=== PATIENT | female | born 1985 | race Caucasian/White ===

== ENCOUNTER → 2016-10-20 | Outpatient (CLI) | payer BC ==
[~2016-10-20] MED LIST: ALPR-411 PO; ASCO10003 PO; CALCTAB7 PO; CHOL1000 PO; COEN150C4 PO; CYCL10TA6 PO; DICL1GEL12 TOP; GABA1CAP4 PO; GLC/500 PO; GLUC10007 PO; HYOS1TAB PO; LACT1CAP6 PO; MELO7.5T5 PO; MENA1CAP PO; METH500C8 PO; MODA1TAB PO; MULT-506 PO; NF656 TD; OMEG10007 PO; OXYC1TAB3 PO; PRAZ1CAP10 PO; PROM25TA9 PO; PROP1TAB PO; PYRI50TA77 PO; VALA500T60 PO
[2016-10-20 16:10] LABS: HEMATOCRIT 38.9 % (37-47)
== END | disposition home or self-care (01) ==
LOC: C.LAB 15:05
PROVIDERS: ATTEND Obstetrics & Gynecology
DX: N92.5 Other specified irregular menstruation (principal)

== ENCOUNTER → 2017-08-19 | Outpatient (CLI) | payer BC ==
[~2017-08-19] MED LIST changes: +SINCALIDE INJ 2 MCG in SODIUM CHLORIDE 0.9% 100ML 100 ML IV SCH
--- NOTE | 2017-08-19 07:39 | DIAGNOSTIC IMAGING REPORT ---
ULTRASOUND RIGHT UPPER QUADRANT ABDOMEN CLINICAL HISTORY: Nausea. COMPARISON STUDY: No priors. TECHNIQUE: Real-time, grayscale, and color flow sonography of the right upper quadrant of the abdomen was performed. Images are reviewed in the transverse and longitudinal planes. FINDINGS: Liver: The liver is normal in size and echotexture. There is no intrahepatic biliary ductal dilatation. The main portal vein is patent. Gallbladder: The gallbladder is normal in appearance. No gallstones are identified. There is no gallbladder wall thickening or pericholecystic fluid. A sonographic Lozano's sign is reportedly absent. The common bile duct measures up to 0.4 cm in diameter. Pancreas: Visualized portions of the pancreatic head and body are normal in appearance. Right kidney: Survey images of the right kidney demonstrate normal size and echotexture. There is no hydronephrosis. Ascites: None. IMPRESSION: Unremarkable sonographic assessment of the right upper quadrant. No gallstones are identified. Electronically signed by: Mynor Judge M.D. 08/19/2017 7:37 AM Dictated Date/Time: 08/19/2017 7:37 AM
--- NOTE | 2017-08-19 10:13 | DIAGNOSTIC IMAGING REPORT ---
NUCLEAR MEDICINE HEPATOBILIARY SCAN WITH EJECTION FRACTION HISTORY: NAUSEA COMPARISON: Abdominal ultrasound 08/19/2017. TECHNIQUE: Immediately following the intravenous administration of 5.3 mCi Tc-99m Choletec, dynamic anterior abdominal imaging pre/post 2 mcg of Kinevac was performed. FINDINGS: Uniform hepatic tracer accumulation is shown. Prompt intrahepatic biliary excretion is seen. The gallbladder, common bile duct, and small bowel are all visualized by 20 minutes. This appearance represents the normal sequence of biliary excretion. Incidental note is made of enterogastric reflux. The gall bladder ejection fraction following administration of Kinevac was 90% (normal >35%). IMPRESSION: 1. No evidence for cystic duct obstruction. 2. Gallbladder ejection fraction calculated to be 90 %. Electronically signed by: Jaret Chua M.D. 08/19/2017 10:11 AM Dictated Date/Time: 08/19/2017 10:02 AM
== END | disposition home or self-care (01) ==
LOC: C.ULTR 07:07
PROVIDERS: ATTEND Internal Medicine Gastroenterology
DX: R11.0 Nausea (principal)